=== PATIENT | female | born 1980 | race Caucasian/White ===

== ENCOUNTER 2021-07-23 10:56 | Outpatient (CLI) | payer OTHER ==
[2021-07-24] MEDS ORDERED: PRENATAL TABLE1 EAC3 PO (18:50)
== END 2021-07-23 11:36 | disposition home or self-care (01) ==
LOC: NST 10:56
PROVIDERS: ATTEND Obstetrics & Gynecology Maternal & Fetal Medicine
DX: Z34.83 Encounter for supervision of other normal pregnancy, third trimester (principal)

== ENCOUNTER 2021-07-24 18:40 | Inpatient (IN) | payer OTHER ==
[~2021-07-24] VITALS: Ht 162.6 cm; Wt 72.1 kg
[2021-07-24] MEDS ORDERED: PRENATAL TABLE1 EAC3 PO (18:50)
== END 2021-07-27 12:59 | disposition home or self-care (01) | DRG 807 ==
LOC: OB/GYN 18:40 → LDR 18:40 → OB/GYN 07-25 04:47
PROVIDERS: ADMIT Obstetrics & Gynecology Maternal & Fetal Medicine; ATTEND Obstetrics & Gynecology Maternal & Fetal Medicine
PROC: 10E0XZZ Delivery of Products of Conception, External Approach (ICD-10-PCS; principal; 2021-07-24)
PROC: 0UQG7ZZ Repair Vagina, Via Natural or Artificial Opening (ICD-10-PCS; 2021-07-24)
PROC: 4A1HXCZ Monitoring of Products of Conception, Cardiac Rate, External Approach (ICD-10-PCS; 2021-07-24)
DX: O71.4 Obstetric high vaginal laceration alone (principal); Z37.0 Single live birth; Z3A.38 38 weeks gestation of pregnancy; Z20.822 Contact with and (suspected) exposure to COVID-19